=== PATIENT | male | born 1980 | race Caucasian/White ===

== ENCOUNTER 2019-06-12 15:39 | Emergency (ER) | payer SELFPAY ==
--- NOTE | 2019-06-12 16:20 | RAD ---
RIGHT ANKLE THREE VIEWS: 06/12/19 HISTORY: Injury, right ankle pain. FINDINGS/IMPRESSION: Soft tissue swelling is present. The ankle mortise is maintained. No acute fracture or dislocation id entified. POS: OFF
== END 2019-06-12 17:25 | disposition home or self-care (01) ==
LOC: MADERS 15:39
DX: S93.401A Sprain of unspecified ligament of right ankle, initial encounter (principal); X50.1XXA Overexertion from prolonged static or awkward postures, initial encounter